=== PATIENT | female | born 1945 | race Caucasian/White ===

== ENCOUNTER 2021-11-23 07:11 | Day surgery (SDC) | payer OTHER ==
[~2021-11-23 07:11] MED LIST: CARVEDILOL12.5 M1 PO; DIOVAN160 M1 PO; FENOFIB; GLIMEPIRIDE1 MG PO; SUCR PO; SYNTHROID100 MCG PO; TRINTELLIX20 MG PO; [UNRECOGNIZED DRUG - CODE] PO
[2021-11-23] MEDS ORDERED: POLY119PG PO (19:34)
[2021-11-23] MEDS ORDERED: PERCOCET 5-3251 EACH PO (19:34)
[2021-11-23] MEDS ORDERED: NEURONTIN600 M1 PO (19:34)
== END 2021-11-24 03:27 | disposition home or self-care (01) ==
LOC: CIR.AMB 07:11 → SURH 07:45 → EDSTATUS 07:45 → CIR.AMB 07:45 → SURH 14:00 → CIR.AMB 11-24 03:27
PROVIDERS: ATTEND Surgery
DX: K43.1 Incisional hernia with gangrene (principal); E11.9 Type 2 diabetes mellitus without complications; E03.9 Hypothyroidism, unspecified; F41.9 Anxiety disorder, unspecified; M19.90 Unspecified osteoarthritis, unspecified site; E78.5 Hyperlipidemia, unspecified